=== PATIENT | male | born 1965 | race Caucasian/White ===

== ENCOUNTER 2017-03-10 12:11 | Outpatient (CLI) | payer BC ==
[~2017-03-10] VITALS: Ht 175.3 cm; Wt 107.3 kg
--- NOTE | ~2017-03-10 | OP ---
PATIENT NAME: HOWARD MAGALLANES MEDICAL RECORD: [id number] :69 LOCATION:D.OPS ADMISSION DATE: SURGEON: SOL MUELLER MD DATE OF OPERATION: 03/10/2017 PRIMARY CARE PHYSICIAN: Gurjit Cohen DO SURGEON: Sol Mueller MD ANESTHESIA: General anesthesia by Jose Tilley CRNA. PREOPERATIVE DIAGNOSIS: Right mid ureteral 6-mm stone with proximal hydronephrosis. POSTOPERATIVE DIAGNOSIS: Right mid ureteral 6-mm stone with proximal hydronephrosis. PROCEDURES: Cystoscopy. Bilateral retrograde pyelogram. Right ureteroscopy and stone extraction. Right ureteral stent insertion, 6-Monegasque x 24 cm with string attached. COMPLICATIONS: None. BLOOD LOSS: None. CLINICAL HISTORY: This is a 51-year-old male with no prior history of kidney stones. He has been complaining of right flank pain radiating down to the right testicle with episodes of nausea since before 2016. Finally, he saw his family physician today, and he had a CT scan of the abdomen and pelvis. This shows a 6-mm stone in the mid ureter on the right side. There is also a 6-mm stone in the left kidney, which is nonobstructive. Because he was continuing to have pain, he was scheduled to have right ureteroscopy and stone extraction. He did eat a Chicken McNugget at 11:30 a.m. today. We therefore had to wait at least 8 hours before we could perform surgery on him. He is not allergic to any medications. We gave him Ancef 1 gram IV network pricing consultant to the OR. DESCRIPTION OF PROCEDURE: The patient was given induction of general anesthesia. He was then placed in the dorsal lithotomy position and prepped and draped. The patient's urethral meatus was rather narrow, so we used male sounds to dilate the urethra to 26-Monegasque. We were then able to insert a 21-Monegasque cystoscope with 30-degree lens. Penile urethra was nonobstructive. Prostatic urethra showed some bilateral lateral lobe enlargement and some tightening of the bladder neck. Going into the bladder, there were single ureteral orifices seen clearly. No bladder trabeculation was noted. No bladder tumors were seen. On fluoroscopy, we could see the right mid ureteral stone very clearly as radiodensity. On the left, it was not so clear where the kidney stone was. Retrograde pyelograms were performed bilaterally. Looking at the retrograde pyelogram on the left, there is no hydronephrosis. The stone seems to be in the mid pole of the kidney. On the right, there was proximal hydronephrosis and the filling defect did demonstrate that the suspected stone was indeed the stone. Through the lumen of the open-ended ureteral catheter, we inserted a Sensor wire up into the right renal pelvis. The open-ended ureteral catheter was then removed entirely. We dilated the right ureteral orifice with an UroMax balloon dilator. The size of the balloon is 21-Monegasque x 4 cm. The balloon was inflated to 16 atmospheres for a few seconds and then deflated completely. The balloon OPERATIVE REPORT [id number] HOWARD MAGALLANES catheter was then completely removed as was the cystoscope. We then used a rigid ureteroscope. We were able to identify the stone in the mid ureter. A 4 wire basket was placed around the stone and the stone was completely removed. We then backloaded the guidewire onto the cystoscope. Over the guidewire, we inserted the stent. Once the stent was in correct position, the wire was withdrawn entirely. This allowed the proximal end of the stent to coil in the renal pelvis. The distal end of the stent was pushed into the bladder using a pusher. The wire was completely removed. The bladder was emptied through the cystoscope sheath and then the scope was removed. There is a string on the distal end of the stent, which is maintained. It hangs out of the penile urethra. It was tied to itself and cut shorter. The patient was awakened and brought to the recovery room. He will be going home tonight. I gave him a script for [place] 5/325, 30 tablets, in the office as well as tamsulosin. I will see him in the office next week to have the ureteral stent removed. TRANSINT:[id number] Voice Confirmation ID: [id number] DOCUMENT ID: [id number] SOL MUELLER MD at 0929 CC: [id number] DICTATION DATE: 03/10/172304 NETWORK DESKTOP SUPPORT SPECIALIST: 03/11/17 0203 DEP CLI 03/11/17 [facility] [address] [place] [address]
[2017-03-10] MEDS ORDERED: OMEPRAZOLE20 M1 PO (15:24)
[2017-03-10] MEDS ORDERED: ZESTORETIC 10/11 TAB PO (15:25)
[2017-03-10] MEDS ORDERED: FISH OIL 1,2001 CAP PO (15:25)
[2017-03-10] MEDS ORDERED: MULTIPLE VITAMI1 TA1 PO (15:25)
[2017-03-10 15:30] VITALS: BP 143/87; Ht 175.3 cm; Wt 107.3 kg
[2017-03-10 16:28] LABS: HEMATOCRIT 48.9 % (42.0-54.0); HEMOGLOBIN 16.5 g/dL (13.5-17.5); MCH 30.2 pg (26.0-34.0); MCHC 33.7 g/dL (31.0-37.0); MCV 89.4 fL (80.0-100.0); RBC 5.47 10x6/uL (4.20-6.10); RDW 12.5 % (11.5-14.5); WBC 10.6 10x3/uL (4.8-10.8)
[2017-03-10 23:25] VITALS: BP 146/83
[2017-03-21 11:12] LABS: CALCULI - CA OXALATE MONOHYDR 75 % (()); CALCULI - CALCIUM PHOSPHATE 25 % (()); CALCULI - COLOR Brown (()); CALCULI - WEIGHT 81.2 mg (())
== END 2017-03-11 01:02 | disposition home or self-care (01) ==
LOC: D.OPS 12:11 → D.CT 12:11 → EDBD 13:30 → D.CT 13:30 → D.MS 20:00 → D.OPS 03-11 01:02
PROVIDERS: Anesthesiology; Family Medicine
DX: N13.2 Hydronephrosis with renal and ureteral calculous obstruction (principal); Z01.812 Encounter for preprocedural laboratory examination

== ENCOUNTER 2017-04-21 10:38 | Day surgery (SDC) | payer BC | END 2017-04-21 14:35 | disposition home or self-care (01) | LOC: D.OPS 10:38 | DX: N20.0 Calculus of kidney (principal); Z01.810 Encounter for preprocedural cardiovascular examination; Z01.811 Encounter for preprocedural respiratory examination; Z01.812 Encounter for preprocedural laboratory examination; Z53.9 Procedure and treatment not carried out, unspecified reason ==

== ENCOUNTER 2017-05-12 10:48 | Day surgery (SDC) | payer BC ==
[~2017-05-12] VITALS: Ht 175.3 cm; Wt 104.5 kg
[~2017-05-12 10:48] MED LIST: FISH OIL 1,2001 CAP PO; MULTIPLE VITAMI1 TA1 PO; OMEPRAZOLE20 M1 PO; ZESTORETIC 10/11 TAB PO
[2017-05-12 11:54] VITALS: BP 111/75; Ht 175.3 cm; Wt 104.5 kg
== END 2017-05-12 13:50 | disposition home or self-care (01) ==
LOC: D.OPS 10:48
DX: N20.0 Calculus of kidney (principal); Z01.810 Encounter for preprocedural cardiovascular examination; Z01.811 Encounter for preprocedural respiratory examination; Z01.812 Encounter for preprocedural laboratory examination; Z53.9 Procedure and treatment not carried out, unspecified reason

== ENCOUNTER → 2017-05-25 07:30 | Outpatient (CLI) | payer BC ==
[2017-05-12 11:54] VITALS: BMI 34.0
== END | disposition home or self-care (01) ==
LOC: D.CT 07:30
DX: N20.0 Calculus of kidney (principal)

== ENCOUNTER → 2018-01-30 09:20 | Outpatient (CLI) | payer BC ==
[2017-05-12 11:54] VITALS: BMI 34.0
== END | disposition home or self-care (01) ==
LOC: D.HCCARDIO 09:20
DX: Z03.89 Encounter for observation for other suspected diseases and conditions ruled out (principal)

== ENCOUNTER 2018-02-16 06:52 | Outpatient (CLI) | payer BC ==
[~2018-02-16] VITALS: Ht 175.3 cm; Wt 102.3 kg
--- NOTE | ~2018-02-16 | HEMODYNAMI ---
PATIENT:HOWARD MAGALLANES MEDICAL RECORD: [id number] : 69 LOCATION:[facility] ADMISSION DATE: 02/16/18 Generatedon:02/16/20189:25 Patient name: HOWARD MAGALLANES Patient #: [id number] SSN: : 1965 Date of study: 02/16/2018 Page: Of Hemodynamic Procedure Report Patient Data Patient Demographics Procedure consent was obtained First Name: HOWARD Gender: Male Last Name: SONA : 1965 [facility] Initial: ANGIE Age: 52 year(s) Patient #: [id number] Race: Unknown Additional ID: [id number] Contact details Address: [address] [place] [address] [address] Data State: [place] City: [place] Zip code: [address] Past Medical History Allergies: No known allergies Admission Admission Data Admission Date: 02/16/2018 Admission Time: 6:52 Lab Results Lab Result Date: 02/16/2018 Lab Result Time: 7:40 Biochemistry Name Units Result Min Max BUN mg/dl 20 --(----)*- 7 18 Creatinine mg/dl 0.9 --(-*--)-- 0.6 1.3 CBC Name Units Result Min Max Hematocrit % 48.5 --(--*-)-- 42 54 Hemoglobin g/dl 16.4 --(--*-)-- 13.5 17.5 Procedure Procedure Types Cath Procedure Diagnostic Procedure C [facility] w/Coronaries Sedation Charges Moderate Sedation up to 30 minutes PCI Procedure Coronary Stent Coronary Stent Initial Procedure Description Procedure Date Procedure Date: 02/16/2018 Procedure Start Time: 8:49 Procedure End Time: 9:24 Procedure Staff Name Function Brien Ruano MD Performing Physician Andrae Davalos RT Monitor Kathryn Martinez RN Nurse Alis Madden RT Scrub Enrique Carrington RT Lamp Shade Assembler Procedure Data Cath Procedure Fluoroscopy Diagnostic fluoroscopy Total fluoroscopy Time: 6.9 time: 6.9 min min Diagnostic fluoroscopy Total fluoroscopy dose: dose: 1249 mGy 1249 mGy Contrast Material Contrast Material Type Amount (ml) Isovue 300 125 Entry Location Entry Primary Successful Side Size Upsize Upsize Entry Closure Berrios ccessful Closure Location (Fr) 1 (Fr) 2 (Fr) Remarks Device Remarks Radial Right 6 Fr Mechanical artery Short Compression Estimated blood loss: 10 ml Diagnostic catheters Device Type Used For End Catheter Placement DIAGNOSTIC Denis 110cm Procedure 5Fr catheter ([id number]) DIAGNOSTIC [place] 110cm 5 Procedure Fr catheter (072628) Procedure Complications No complications Procedure Medications Medication Administration Route Dosage 0.9% NaCl I.V. 100 ml/hr Oxygen etCO2 Nasal cannula 2 l/min Lidocaine 2% added to field 20 Heparin Flush Bag added to field 2 bags (1000units/500ml NS) Radial Cocktail added to field 1 syringe (Verapomil 2mg/Nitro 400mcg/Heparin 1500units) Versed I.V. 2 mg Fentanyl I.V. 50 mcg Versed I.V. 2 mg Fentanyl I.V. 50 mcg Heparin Bolus I.V. 74192 units Brilinta P.O. 180 mg Hemodynamics Rest HGB: 16.4 (g/dl) Heart Rate: 84 (bpm) Pressure Samples Time Site Value (mmHg) Purpose Heart Use Rate(bpm) 8:55 LV 114/1,12 Snapshot 88 8:56 AO 114/71(85) Pullback 96 8:56 LV 127/44,10 Pullback 96 Gradients Valve Time Site 1 Site 2 Mean SEP/DFP Peak To Heart Use (mmHg) (sec/min) Peak Rate (mmHg) (bpm) Aortic 8:56 LV AO 10 5 13 96 127/44,10 114/71(85) Calculations Valve P-P Mean Valve Index Valve Source Name Gradient Area Flow (cm2) Aortic 13 10 13 10 Snapshots Pre Cath Intra NCS Post Cath Vital Signs Time Heart Resp SPO2 etCO2 NIBP Rhythm Pain Sedation Rate (ipm) (%) (mmHg) (mmHg) Status Level (bpm) 8:32:54 72 16 97 34.2 113/73(88) NSR 0 (11) 10(A) , No pain 8:37:14 73 12 98 36.5 108/69(91) NSR 0 (11) 10(A) , No pain 8:41:32 78 15 100 36.5 106/72(90) NSR 0 (11) 10(A) , No pain 8:45:46 78 11 96 36.5 104/68(85) NSR 0 (11) 10(A) , No pain 8:50:02 76 12 97 39.5 113/68(83) NSR 0 (11) 10(A) , No pain 8:54:16 79 14 97 26.8 107/66(83) NSR 0 (11) 10(A) , No pain 8:58:34 86 13 96 36.5 105/61(85) NSR 0 (11) 9(A) , No pain 9:02:52 81 14 95 40.2 102/62(82) NSR 0 (11) 9(A) , No pain 9:07:10 79 10 97 38.7 105/61(89) NSR 0 (11) 9(A) , No pain 9:11:28 82 13 96 38.7 99/64(79) NSR 0 (11) 9(A) , No pain 9:15:44 75 10 97 38.7 104/62(80) NSR 0 (11) 9(A) , No pain 9:19:58 79 12 98 40.6 105/63(81) NSR 0 (11) 10(A) , No pain 9:24:12 70 12 99 107/74(85) NSR 0 (11) 9(A) , No pain Medications Time Medication Route Dose Verified Delivered Reason Note s Effectiveness by by 8:31:45 0.9% NaCl I.V. 100 Brien Kathryn used for ml/hr Alden Martinez gas station service attendant 8:31:52 Oxygen etCO2 2 l/min Brien Kathryn used for Nasal Alden Martinez procedure cannula RN 8:31:57 Lidocaine 2% added 20ml Brien Brien for local to vial Alden Ruano MD anesthetic field 8:32:02 Heparin Flush added 2 bags Brien Brien used for Bag to Alden Ruano MD procedure (1000units/500ml field NS) 8:32:10 Radial Cocktail added 1 Brien Brien used for (Verapomil to syringe Alden Ruano MD procedure 2mg/Nitro field 400mcg/Heparin 1500units) 8:45:11 Versed I.V. 2 mg Brien Kathryn for sedation Alden Martinez RN 8:45:16 Fentanyl I.V. 50 mcg Brien Kathryn for sedation Alden Martinez RN 8:56:04 Versed I.V. 2 mg Brien Kathryn for sedation Alden Martinez RN 8:56:10 Fentanyl I.V. 50 mcg Brien Kathryn for sedation Alden Martinez RN 9:05:38 Heparin Bolus I.V. 08496 Brien Kathryn for veri fied units Alden Martinez anticoagulation with DrGwendolyn Ruano 9:20:42 Brilinta P.O. 180 mg Brien Kathryn for Alden Martinez antiplatelet RN therapy Procedure Log Time Note 8:02:47 Time tracking: Regular hours (M-F 7:00 - 5:00) 8:02:51 Plan of Care:Hemodynamics will remain stable., Cardiac rhythm will remain stable., Comfort level will be maintained., Respiratory function will remain adequate., Patient/ family verbilizes understanding of procedure., Procedure tolerated without complication., Recovers from procedure without complications.. 8:10:00 Enrique Carrington RT(R) sent for patient. Start room use. 8:25:02 Patient received from Pre/Post Procedure Room to CCL 1 Alert and oriented. Tansferred to table in Supine position. 8:25:03 Warm blankets applied, and vivek hugger turned on for patient comfort. 8:25:04 Correct patient and procedure confirmed by team. 8:25:05 Signed procedure consent form obtained from patient. 8:25:06 ECG and BP/O2 sat monitors applied to patient. 8:25:14 H&P Date Dictated: 02/16/2018 New H&P dictated by physician.. 8:25:17 Pre-procedure instructions explained to patient. 8:25:17 Pre-op teaching completed and patient verbalized understanding. 8:25:19 Family in waiting room. 8:25:20 Patient NPO since Midnight. 8:25:26 Patient allergic to No known allergies 8:25:58 Lab Result : BUN 20 mg/dl 8:25:58 Lab Result : Creatinine 0.9 mg/dl 8:25:58 Lab Result : Hemoglobin 16.4 g/dl 8:25:58 Lab Result : Hematocrit 48.5 % 8:31:36 Vital chart was started 8:31:45 0.9% NaCl 100 ml/hr I.V. was administered by Kathryn Martinez RN; used for procedure; 8:31:49 Full Disclosure recording started 8:31:52 Oxygen 2 l/min etCO2 Nasal cannula was administered by Kathryn Martinez RN; used for procedure; 8:31:57 Lidocaine 2% 20ml vial added to field was administered by Brien Ruano MD; for local anesthetic; 8:32:02 Heparin Flush Bag (1000units/500ml NS) 2 bags added to field was administered by Brien Ruano MD; used for procedure; 8:32:10 Radial Cocktail (Verapomil 2mg/Nitro 400mcg/Heparin 1500units) 1 syringe added to field was administered by Brien Ruano MD; used for procedure; 8:43:43 Baseline sample Acquired. 8:43:48 Rhythm: sinus rhythm 8:43:52 Is the patient allergic to Iodine/contrast media? No. 8:43:56 Is patient on blood thinner?No 8:43:57 Patient diabetic? No. 8:43:59 Previous problem with sedation/anesthesia? No ? 8:44:00 Snore? Yes 8:44:01 Sleep apnea? No 8:44:02 Deviated septum? No 8:44:02 Opens mouth fully? Yes 8:44:03 Sticks out tongue? Yes 8:44:04 Airway obstruction? No ? 8:44:06 Dentures? No ? 8:44:08 Pre procedure: right dorsailis pedis pulse 2+ Normal; easily identifiable; not easily obliterated 8:44:15 Modified Tyler's test Ulnar < 7 seconds 8:44:17 Patient pain scale 0/10 ?. 8:44:22 IV patent on arrival in left wrist with 0.9% NaCl at KVO. 8:44:24 Lab results completed and on chart. 8:44:26 Right Radial & Right Groin area was prepped with chlora-prep and draped in sterile fashion 8:44:27 Alarms reviewed by R. N. 8:44:28 Sharps counted by scrub and verified by R.N. 8:44:30 Use device set Radial Dx or PCI 8:44:31 ACIST Syringe (48049) opened to sterile field. 8:44:31 Medline Cath Pack ([id number]) opened to sterile field. 8:44:32 Bag Decanter (2001S) opened to sterile field. 8:44:33 ACIST Hand Control (98977) opened to sterile field. 8:44:33 ACIST Manifold (85916) opened to sterile field. 8:44:33 Tegaderm 4 x 4 (1626W) opened to sterile field. 8:44:34 MBrace Wrist Support (496800550) opened to sterile field. 8:44:35 SHEATH 6FR Slender (44-1060) opened to sterile field. 8:44:36 NEEDLE Cook 21G 4cm Radial (G45683) opened to sterile field. 8:44:37 DIAGNOSTIC WIRE .035 260cm J wire (079077) opened to sterile field. 8:44:43 Physician arrived 8:44:43 --------ALL STOP TIME OUT------ 8:44:44 Final Timeout: patient, procedure, and site verified with staff and physician. All members of the team are in agreement. 8:44:45 Right Radial & Right Groin site verified by team. 8:44:47 Physical assessment completed. ASA score P 2 - A patient with mild systemic disease as per Brien Ruano MD. 8:44:50 Sedation plan: IV Moderate Sedation Medication:Versed, Fentanyl 8:45:11 Versed 2 mg I.V. was administered by Kathryn Martinez RN; for sedation; 8:45:16 Fentanyl 50 mcg I.V. was administered by Kathryn Martinez RN; for sedation; 8:47:18 Zero performed for pressure channel P1 8:49:29 Zero performed for pressure channel P1 8:49:35 Procedure started. 8:49:38 Local anesthetic to right radial artery with Lidocaine 2% by Brien Ruano MD.INITIAL ACCESS ONLY 8:54:05 A 6 Fr Short sheath was inserted into the Right Radial artery 8:54:17 A DIAGNOSTIC Denis 110cm 5Fr catheter (507130) was advanced over the wire and used for Procedure. 8:56:03 LV gram done using MONTERROSO 8:56:03 LV hemodynamics recorded. 8:56:04 Versed 2 mg I.V. was administered by Kathryn Martinez RN; for sedation; 8:56:06 Injector settings: Ml/sec: 5, Volume: 15, 8:56:10 Fentanyl 50 mcg I.V. was administered by Kathryn Martinez RN; for sedation; 8:56:14 EF : 60 % 8:56:52 RCA angiography performed. 8:59:06 Catheter exchanged over wire. 8:59:10 A DIAGNOSTIC [place] 110cm 5 Fr catheter (479709) was advanced over the wire and used for Procedure. 9:00:32 LCA angiography performed. 9:02:06 Catheter exchanged over wire. 9:02:12 GUIDE 6FR XBLAD 3.5 catheter (51658615) opened to sterile field. 9:02:22 TUBING High Pressure Extension Tubing (Alden) ([id number]) opened to sterile field. 9:02:24 INFLATOR Merit BasixCompak (QA9669) opened to sterile field. 9:02:24 BMW 300cm [place] 2 J wire ([id number]) opened to sterile field. 9:04:37 6 Fr XBLAD 3.5 guide catheter was inserted over the wire 9:05:38 Heparin Bolus 95794 units I.V. was administered by Kathryn Martinez RN; for anticoagulation; verified with Dr. Ruano 9:06:49 BMW wire advanced. 9:09:36 Wire advanced across lesion. 9:11:03 Place stent Inflation Number: 1 A MARCELLE OTW 2.75 x 15 stent ([id number]) was prepped and advanced across the Prox LAD. The stent was deployed at 12 ASHLIE for 0:10 (min:sec). 9:11:14 Stent catheter was removed intact over wire. 9:18:19 Place stent Inflation Number: 2 A MARCELLE OTW 2.75 x 18 stent ([id number]) was prepped and advanced across the Prox LAD. The stent was deployed at 12 ASHLIE for 0:10 (min:sec). 9:18:50 Stent catheter was removed intact over wire. 9:18:51 Wire removed. 9:18:51 Guide catheter removed. 9:19:23 TR BAND Standard ([id number]) opened to sterile field. 9:19:30 Sheath removed intact; hemostasis achieved with Mechanical Compression to the Right Radial artery. 9:19:31 Procedure ended.(Physican Out) 9:19:51 Fluoroscopy time 06.90 minutes. 9:19:57 Flurop Dose total: 1249 9:19:57 Fluoroscopy dose: 1249 mGy 9:20:00 Contrast amount:Isovue 300 125ml. 9:20:02 Sharps counted by scrub and verified by R.N. 9:20:09 TR band inflated with 12cc of air. 9:20:10 Insertion/operative site no bleeding no hematoma. 9:20:42 Brilinta 180 mg P.O. was administered by Kathryn Martinez RN; for antiplatelet therapy; 9:22:18 Post right radial artery:stable, soft, clean and dry 9:22:19 Post Procedure Pulses reassessed and unchanged 9:22:21 Post-procedure physical assessment completed. ASA score P 2 - A patient with mild systemic disease as per Brien Ruano MD. 9:22:23 Post procedure rhythm: unchanged. 9:22:25 Estimated blood loss: 10 ml 9:23:00 Post procedure instruction explained to patient.Patient verbalizes understanding. 9:23:01 Patient needs reinforcement of post procedure teaching. 9:23:01 Procedure and supply charges have been captured, reviewed, submitted and are correct. 9:23:40 Procedure type changed to Cath procedure, Diagnostic procedure, LHC, LHC w/Coronaries, Sedation Charges, Moderate Sedation up to 30 minutes, PCI procedure, Coronary Stent, Coronary Stent Initial 9:24:39 Procedure Complication : No complications 9:24:41 Vital chart was stopped 9:24:42 See physician's report for complete and final results. 9:24:44 Report given to Pre/Post Procedure Room. 9:24:48 Patient transfered to Pre/Post Procedure Room with Stretcher. 9:24:50 Procedure ended. 9:24:50 Full Disclosure recording stopped 9:24:53 End room use (Document Last) Intervention Summary Intervention Notes Time ActionType Lesion and Equipment Action# Pressure Duration Attributes Used 9:11:03 Place stent Prox LAD MARCELLE OTW 2.75 1 12 00:10 x 15 stent ([id number]) 9:18:19 Place stent Prox LAD MARCELLE OTW 2.75 2 12 00:10 x 18 stent ([id number]) Device Usage Item Name Manufacture Quantity Catalog Hospital Part Current Mini mal Lot# / Number Charge Number Stock Stock Serial# Code ACIST Syringe Acist 1 42277 653907 018472 806125 20 (86787) Alt12 Apps Medline Cath Medline 1 [id number] 629811 38276 015820 5 Pack ([id number]) Bag Decanter Microtek 1 670724 85103 980135 5 (2001S) Medical Inc. ACIST Hand Acist 1 62843 108370 642274 187920 5 Control Medical (19975) Systems Inc ACIST Acist 1 51657 630415 340681 787415 5 Manifold Medical (39547) Systems Inc Tegaderm 4 x 3M 1 1626W 459980 026532 645564 5 4 (1626W) MBrace Wrist Advanced 1 140-0250-00 175125 81948 298234 5 Support Vascular (713177676) Dynamics SHEATH 6FR Terumo 1 [id number] 197167 819767 074403 5 Slender (80-1060) NEEDLE SilverPush Medical 1 L75261 127905 187154 297526 5 21G 4cm Radial (G01031) DIAGNOSTIC St Mak 1 176400 462728 367021 319153 30 WIRE .035 260cm J wire (946134) DIAGNOSTIC Terumo 1 40-5023 070594 216987 112608 5 Denis 110cm 5Fr catheter (698825) DIAGNOSTIC Terumo 1 40-5013 985432 037418 597515 5 [place] 110cm 5 Fr catheter (525440) GUIDE 6FR Cardinal 1 [id number] 100945 832824 114052 10 XBLAD 3.5 Health catheter (15195573) TUBING High Merit 1 [id number] 628961 43124 530407 10 Pressure Medical Extension Tubing (Ruano) (FQ3784B) INFLATOR Merit 1 OS2129 138453 123611 700822 15 [facility] Medical BasixCompak (XU9196) BMW 300cm Rodriguez 1 [id number] 260404 306912 204158 5 [place] 2 J Vascular wire (9689330H) MARCELLE OTW 2.75 Medtronic 1 [id number] 625758 9522005 638509 5 [id number] x 15 stent ([id number]) MARCELLE OTW 2.75 Medtronic 1 [id number] 811932 4355791 950825 5 [id number] x 18 stent ([id number]) TR BAND Terumo 1 [id number] 642721 771725 629064 40 Standard ([id number]) Signature Audit [place] Stage Time Signature Unsigned Intra-Procedure 02/16/2018 Andrae Davalos 9:25:53 AM RT(R) Signatures Monitor : Andrae Davalos RT Signature : Date : Time : [address] [place] [address]
[2018-02-16 07:29] VITALS: BP 119/78; Ht 175.3 cm; Wt 102.3 kg
[2018-02-16 07:45] LABS: BASOPHILS 0.2 % (0-2); EOSINOPHILS 1.8 % (0-7); HEMATOCRIT 48.5 % (42.0-54.0); HEMOGLOBIN 16.4 g/dL (13.5-17.5); IMMATURE GRANULOCYTES 0.2 % (0-5); MCH 30.2 pg (26.0-34.0); MCHC 33.8 g/dL (31.0-37.0); MCV 89.3 fL (80.0-100.0); MEAN PLATELET VOLUME 11.3 fL (7.4-10.4); MONOCYTES 10.1 % (2-11); NEUTROPHILS 62.7 % (40-80); PLATELET COUNT 168 10x3/uL (130-400); RBC 5.43 10x6/uL (4.20-6.10); RDW 12.6 % (11.5-14.5); WBC 5.6 10x3/uL (4.8-10.8)
[2018-02-16 08:03] LABS: CALC OSMOLALITY 286 mosm/kg (275-300); CALCIUM 9.5 mg/dL (8.5-10.1); CARBON DIOXIDE 28.8 mmol/L (21.0-32.0); CHLORIDE - SERUM 104 mmol/L (98-107); CREATININE - SERUM 0.9 mg/dL (0.6-1.3); GLUCOSE 120 mg/dL (74-106); SODIUM 142 mmol/L (136-145); UREA NITROGEN 20 mg/dL (7-18); eGFR NON AFRICAN AMERICAN > 90 mL/min (90-120)
[2018-02-16] MEDS ORDERED: BRILINTA90 MG PO (09:30)
[2018-02-16] MEDS ORDERED: BAYER CHEWABLE81 MG PO (09:30)
== END 2018-02-16 13:40 | disposition home or self-care (01) ==
LOC: D.CATH 06:52
PROVIDERS: Internal Medicine Cardiovascular Disease
DX: I25.119 Atherosclerotic heart disease of native coronary artery with unspecified angina pectoris (principal); I10 Essential (primary) hypertension; K21.9 Gastro-esophageal reflux disease without esophagitis; Z01.812 Encounter for preprocedural laboratory examination

== ENCOUNTER → 2019-10-22 09:59 | Outpatient (CLI) | payer BC ==
[2018-02-16 07:29] VITALS: BMI 33.3
[~2019-10-22 09:59] MED LIST changes: +BAYER CHEWABLE81 MG PO; +BRILINTA90 MG PO
== END | disposition home or self-care (01) ==
LOC: D.HCCARDIO 09:59
PROVIDERS: ATTEND Internal Medicine Cardiovascular Disease
DX: I25.10 Atherosclerotic heart disease of native coronary artery without angina pectoris (principal)

== ENCOUNTER 2019-11-05 11:21 | Day surgery (SDC) | payer BC ==
[~2019-11-05] VITALS: Ht 175.3 cm; Wt 103.2 kg
--- NOTE | ~2019-11-05 | HEMODYNAMI ---
PATIENT:HOWARD MAGALLANES MEDICAL RECORD: [id number] : 69 LOCATION:D.CAT ADMISSION DATE: 11/05/19 Generatedon:11/05/201915:05 Patient name: HOWARD MAGALLANES Patient #: [id number] SSN: [id number] : 1965 Date of study: 11/05/2019 Page: Of Hemodynamic Procedure Report Patient Data Patient Demographics Procedure consent was obtained First Name: HOWARD Gender: Male Last Name: SONA : 1965 [facility] Initial: ANGIE Age: 53 year(s) Patient #: [id number] Race: SSN: [id number] Additional ID: [id number] Contact details Address: [address] [place] [address] [facility] State: [place] City: [place] Zip code: [address] Past Medical History Allergies: No known allergies Admission Admission Data Admission Date: 11/05/2019 Admission Time: 11:21 Arrival Date: 11/05/2019 Arrival Time: 0:00 Admit Source: Other Insurance Payor: Private health insurance [facility] #: [id number] Height (in.): 69 BSA: 2.18 (m2) Height (cm.): 175.26 BMI: 33.59 (kg/m2) Weight (lbs.): 227.47 Weight (kg.): 103.18 Lab Results Lab Result Date: 11/05/2019 Lab Result Time: 0:00 Biochemistry Name Units Result Min Max BUN mg/dl 20 --(----)*- 7 18 Creatinine mg/dl 0.8 --(-*--)-- 0.6 1.3 eGFR ml/min 90 --(*---)-- 90 120 NONAFRICAN CBC Name Units Result Min Max Hematocrit % 49 --(--*-)-- 42 54 Hemoglobin g/dl 16.2 --(--*-)-- 13.5 17.5 Procedure Procedure Types Cath Procedure Diagnostic Procedure LHC LHC w/Coronaries Sedation Charges Moderate Sedation up to 15 minutes Procedure Description Procedure Date Procedure Date: 11/05/2019 Procedure Start Time: 14:49 Procedure End Time: 15:02 Procedure Staff Name Function Brien Ruano MD Performing Physician Aleta Walker RT Scrub Gardenia Lora, RN Nurse Joyce Perez RN Nurse Andrae Davalos RT Monitor Procedure Data Cath Procedure Fluoroscopy Diagnostic fluoroscopy Total fluoroscopy Time: 3 time: 3 min min Diagnostic fluoroscopy Total fluoroscopy dose: 606 dose: 606 mGy mGy Contrast Material Contrast Material Type Amount (ml) Isovue 300 63 Entry Location Entry Primary Successful Side Size Upsize Upsize Entry Closure Berrios ccessful Closure Location (Fr) 1 (Fr) 2 (Fr) Remarks Device Remarks Radial Right 6 Fr Mechanical artery Short Compression Estimated blood loss: 5 ml Diagnostic catheters Device Type Used For End Catheter Placement DIAGNOSTIC Denis 110cm Procedure 5Fr catheter ([id number]) DIAGNOSTIC Lawton 110cm 5 Procedure Fr catheter ([id number]) Procedure Complications No complications Procedure Medications Medication Administration Route Dosage Oxygen etCO2 Nasal cannula 2 l/min Heparin Flush Bag added to field 2 bags (1000units/500ml NS) Lidocaine 2% added to field 20 0.9% NaCl I.V. 100 ml/hr Radial Cocktail added to field 1 syringe (Verapamil 2mg/Nitro 400mcg/Heparin 1500units) Fentanyl I.V. 50 mcg Versed I.V. 1 mg Fentanyl I.V. 50 mcg Versed I.V. 1 mg Radial Cocktail I.A. 1 syringe (Verapamil 2mg/Nitro 400mcg/Heparin 1500units) Versed I.V. 0.5 mg Hemodynamics Rest BSA: 2.18 (m2) HGB: 16.2 (g/dl) O2 Consumption: Estimated: 258.1 (ml/min) O2 Con sumption indexed: Estimated:118.39 (ml/min/m) Heart Rate: 67 (bpm) Pressure Samples Time Site Value (mmHg) Purpose Heart Use Rate(bpm) 14:52 LV 102/-2,9 Snapshot 80 14:52 AO 79/57(65) Pullback 87 14:52 LV 105/-1,6 Pullback 87 Gradients Valve Time Site 1 Site 2 Mean SEP/DFP Peak To Heart Use (mmHg) (sec/min) Peak Rate (mmHg) (bpm) Aortic 14:52 LV AO 11 21 26 87 105/-1,6 79/57(65) Calculations Valve P-P Mean Valve Index Valve Source Name Gradient Area Flow (cm2) Aortic 26 11 26 11 Snapshots Pre Cath Intra NCS Post Cath Vital Signs Time Heart Resp SPO2 etCO2 NIBP Rhythm Pain Sedation Rate (ipm) (%) (mmHg) (mmHg) Status Level (bpm) 14:09:34 71 17 97 0 110/75(87) NSR 0 (11) 10(A) , No pain 14:13:50 70 16 97 0 117/71(88) NSR 0 (11) 10(A) , No pain 14:18:11 72 12 94 0 109/65(84) NSR 0 (11) 10(A) , No pain 14:22:29 74 12 93 0 104/67(83) NSR 0 (11) 10(A) , No pain 14:26:47 82 11 89 0 118/64(91) NSR 0 (11) 10(A) , No pain 14:31:07 78 13 90 0 104/63(81) NSR 0 (11) 10(A) , No pain 14:35:23 72 15 92 0 115/66(81) NSR 0 (11) 10(A) , No pain 14:39:41 71 10 93 0 105/63(81) NSR 0 (11) 10(A) , No pain 14:43:57 72 10 93 0 104/66(83) NSR 0 (11) 10(A) , No pain 14:48:15 72 12 93 0 105/61(82) NSR 0 (11) 9(A) , No pain 14:52:29 102 11 92 0 105/53(86) NSR 0 (11) 9(A) , No pain 14:56:47 76 11 92 0 107/64(77) NSR 0 (11) 9(A) , No pain 15:01:03 71 10 93 0 105/66(82) NSR 0 (11) 9(A) , No pain Medications Time Medication Route Dose Verified Delivered Reason Notes Effectiveness by by 14:11:35 Oxygen etCO2 2 l/min Gardenia Gardenia for low 02 Nasal Lora, Lora, sats cannula RN RN 14:12:13 Heparin Flush added 2 bags Gardenia Gardenia used for Bag to Lora, Lora, procedure (1000units/500ml field RN RN NS) 14:12:27 Lidocaine 2% added 20ml Gardenia Brien for local to vial Alden Lora MD anesthetic field RN 14:12:50 0.9% NaCl I.V. 100 Gardenia Brien Per ml/hr Alden Lora MD physician RN 14:13:03 Radial Cocktail added 1 Gardenia Gardenia for (Verapamil to syringe Guido Lora, vasodilation 2mg/Nitro field RN RN 400mcg/Heparin 1500units) 14:45:41 Fentanyl I.V. 50 mcg Gardenia Gardenia for sedation Guido Lora, RN RN 14:45:44 Versed I.V. 1 mg Gardenia Gardenia for sedation Guido Lora, RN RN 14:49:23 Fentanyl I.V. 50 mcg Gardenia Gardenia for sedation Guido Lora, RN RN 14:49:26 Versed I.V. 1 mg Gardenia Gardenia for sedation Guido Lora, RN RN 14:51:13 Radial Cocktail I.A. 1 Gardenia Brien for (Verapamil syringe Alden Lora MD vasodilation 2mg/Nitro RN 400mcg/Heparin 1500units) 14:53:22 Versed I.V. 0.5 mg Gardenia Gardenia for sedation Guido Lora, RN supervisor agricultural education Log Time Note 13:50:59 Informed consent obtained and on chart 13:51:19 Diagnostic Cath Status : Elective 13:51:36 Arrival Date: 11/05/2019 12:00:00 AM 13:51:37 Admit Source: Other 13:51:40 Insurance Payor : Private health insurance 13:52:03 Patient Height : 69 inches 13:52:07 Patient Weight : 227.47 lbs 13:52:35 Lab Result : Hemoglobin 16.2 g/dl 13:52:35 Lab Result : Hematocrit 49 % 13:52:35 Lab Result : eGFR NONAFRICAN 90 ml/min 13:52:35 Lab Result : BUN 20 mg/dl 13:52:35 Lab Result : Creatinine 0.8 mg/dl 14:01:01 Procedure Status Elective Heart Cath (OP). 14:01:03 Gardenia Lora RN sent for patient. Start room use. 14:01:04 Time tracking: Regular hours (M-F 7:00 - 5:00) 14:01:08 Plan of Care:Hemodynamics will remain stable., Cardiac rhythm will remain stable., Comfort level will be maintained., Respiratory function will remain adequate., Patient/ family verbilizes understanding of procedure., Procedure tolerated without complication., Recovers from procedure without complications.. 14:01:19 H&P Date Dictated: 10/03/2019 Within 30 days and on chart., H&P Addendum completed by physician on day of procedure. (MUST COMPLETE FOR ALL OUTPATIENTS). 14:02:55 Patient received from Pre/Post Procedure Room to CCL 1 Alert and oriented. Tansferred to table in Supine position. 14:02:56 Warm blankets applied, and vivek hugger turned on for patient comfort. 14:02:57 Correct patient and procedure confirmed by team. 14:02:57 ECG and BP/O2 sat monitors applied to patient. 14:08:24 Vital chart was started 14:08:25 Baseline sample Acquired. 14:08:29 Rhythm: sinus rhythm 14:10:44 Pre-procedure instructions explained to patient. 14:10:45 Pre-op teaching completed and patient verbalized understanding. 14:10:46 Family in waiting room. 14:10:48 Patient NPO since Breakfast. 14:10:59 Patient allergic to No known allergies 14:11:02 Is the patient allergic to Iodine/contrast media? No. 14:11:03 Is patient on blood thinner?No 14:11:06 Patient diabetic? No. 14:11:35 Oxygen 2 l/min etCO2 Nasal cannula was administered by Gardenia Lora RN; for low 02 sats; Verbal order read back and verified. 14:12:13 Heparin Flush Bag (1000units/500ml NS) 2 bags added to field was administered by Gardenia Lora RN; used for procedure; Verbal order read back and verified. 14:12:27 Lidocaine 2% 20ml vial added to field was administered by Brien Ruano MD; for local anesthetic; Verbal order read back and verified. 14:12:50 0.9% NaCl 100 ml/hr I.V. was administered by Brien Ruano MD; Per physician; Verbal order read back and verified. 14:13:03 Radial Cocktail (Verapamil 2mg/Nitro 400mcg/Heparin 1500units) 1 syringe added to field was administered by Gardenia Lora RN; for vasodilation; Verbal order read back and verified. 14:17:22 Zero performed for pressure channel P1 14:22:14 Zero performed for pressure channel P1 14:30:38 Previous problem with sedation/anesthesia? No ? 14:30:39 Snore? Yes 14:30:43 Sleep apnea? No 14:30:44 Deviated septum? No 14:30:45 Opens mouth fully? Yes 14:30:46 Sticks out tongue? Yes 14:30:47 Airway obstruction? No ? 14:30:49 Dentures? No ? 14:30:53 Pre procedure: right dorsailis pedis pulse 2+ Normal; easily identifiable; not easily obliterated 14:30:55 Modified Tyler's test Ulnar > 7 seconds. 14:30:57 Patient pain scale 0/10 ?. 14:31:07 IV patent on arrival in left forearm with 0.9% NaCl at [facility]. 14:31:08 Lab results completed and on chart. 14:31:28 Stress Test: yes; abnormal INFERIOR 14:32:26 Right Radial & Right Groin area was prepped with chlora-prep and draped in sterile fashion 14:32:28 Alarms reviewed by R. N. 14:32:28 Sharps counted by scrub and verified by R.N. 14:32:30 Use device set Radial Dx or PCI 14:32:32 ACIST Syringe (47963) opened to sterile field. 14:32:32 Medline Cath Pack ([id number]) opened to sterile field. 14:32:32 Bag Decanter (2002) opened to sterile field. 14:32:33 ACIST Hand Control (43357) opened to sterile field. 14:32:33 ACIST Manifold (95262) opened to sterile field. 14:32:34 Tegaderm 4 x 4 (1626W) opened to sterile field. 14:32:35 MBrace Wrist Support ([id number]) opened to sterile field. 14:32:36 NEEDLE Cook 21G 4cm Radial (T33568) opened to sterile field. 14:32:37 EMERALD Guide Wire (404-023) opened to sterile field. 14:32:38 SHEATH 6FR RAIN (6487618) opened to sterile field. 14:32:46 Physician arrived 14:45:02 --------ALL STOP TIME OUT------ 14:45:03 Final Timeout: patient, procedure, and site verified with staff and physician. All members of the team are in agreement. 14:45:04 Right Radial & Right Groin site verified by team. 14:45:08 Fire Safety Assessment: A--An alcohol-based skin anteseptic being used preoperatively., C--Open oxygen or nitrous oxide is being used., D--An ESU, laser, or fiber-optic light is being used. 14:45:10 Physical assessment completed. ASA score P 2 - A patient with mild systemic disease as per Brien Ruano MD. 14:45:12 1) 90+ Normal kidney functon but urine findings or structural abnormalities or genetic trait point to kidney disease. 14:45:16 Maximum allowable contrast dose (3.7 X eGFR X 0.75)250 ml. 14:45:20 Sedation plan: IV Moderate Sedation Medication:Versed, Fentanyl 14:45:41 Fentanyl 50 mcg I.V. was administered by Gardenia Lora RN; for sedation; Verbal order read back and verified. 14:45:44 Versed 1 mg I.V. was administered by Gardenia Lora RN; for sedation; Verbal order read back and verified. 14:49:16 Procedure started. 14:49:16 Full Disclosure recording started 14:49:20 Local anesthetic to right radial artery with Lidocaine 2% by Brien Ruano MD.INITIAL ACCESS ONLY 14:49:23 Fentanyl 50 mcg I.V. was administered by Gardenia Lora RN; for sedation; Verbal order read back and verified. 14:49:26 Versed 1 mg I.V. was administered by Gardenia Lora RN; for sedation; Verbal order read back and verified. 14:50:46 A 6 Fr Short sheath was inserted into the Right Radial artery 14:51:00 A DIAGNOSTIC Denis 110cm 5Fr catheter ([id number]) was advanced over the wire and used for Procedure. 14:51:13 Radial Cocktail (Verapamil 2mg/Nitro 400mcg/Heparin 1500units) 1 syringe I.A. was administered by Brien Ruano MD; for vasodilation; Verbal order read back and verified. 14:52:22 LV gram done using MONTERROSO 14:52:25 Injector settings: Ml/sec: 5, Volume: 15, 14:52:29 LV hemodynamics recorded. 14:52:39 EF : 60 % 14:52:54 LCA angiography performed. 14:53:22 Versed 0.5 mg I.V. was administered by Gardenia Lora RN; for sedation; Verbal order read back and verified. 14:53:55 Catheter exchanged over wire. 14:54:03 A DIAGNOSTIC Lawton 110cm 5 Fr catheter ([id number]) was advanced over the wire and used for Procedure. 14:55:45 LCA angiography performed. 14:56:53 RCA angiography performed. 14:57:23 Catheter removed. 14:57:26 TR BAND Standard ([id number]) opened to sterile field. 14:58:19 Sheath removed intact; hemostasis achieved with Mechanical Compression to the Right Radial artery. 14:58:21 Procedure ended.(Physican Out) 14:59:56 Fluoroscopy time 03.00 minutes. 15:00:01 Flurop Dose total: 606 15:00:01 Fluoroscopy dose: 606 mGy 15:00:11 Dose Area Product 64473 mGy/cm. 15:00:15 Contrast amount:Isovue 300 63ml. 15:00:17 Maximum allowable dose exceeded? No. 15:00:18 Sharps counted by scrub and verified by R.N. 15:00:20 Coleman band inflated with 12cc of air. 15:00:21 Insertion/operative site no bleeding no hematoma. 15:00:26 Post right radial artery:stable, soft, clean and dry 15:00:28 Post Procedure Pulses reassessed and unchanged 15:00:30 Post-procedure physical assessment completed. ASA score P 2 - A patient with mild systemic disease as per Brien Ruano MD. 15:00:38 Post procedure rhythm: unchanged. 15:00:41 Estimated blood loss: 5 ml 15:00:43 Post procedure instruction explained to patient.Patient verbalizes understanding. 15:00:44 Patient needs reinforcement of post procedure teaching. 15:01:32 Procedure type changed to Cath procedure, Diagnostic procedure, LHC, LHC w/Coronaries, Sedation Charges, Moderate Sedation up to 15 minutes 15:01:51 Procedure and supply charges have been captured, reviewed, submitted and are correct. 15:01:53 Procedure Complication : No complications 15:01:57 Vital chart was stopped 15:02:07 See physician's report for complete and final results. 15:02:07 Operative report dictated upon procedure completion. 15:02:09 Report given to Pre/Post Procedure Room. 15:02:13 Patient transfered to Pre/Post Procedure Room with Stretcher. 15:02:15 Procedure ended. 15:02:15 Full Disclosure recording stopped 15:02:18 End room use (Document Last) 15:03:28 Aleta Walker RT(R) was relieved by Joyce Perez RN as monitoring person 15:04:16 Joyce Perez RN was relieved by Andrae Davalos RT(R) as monitoring person Device Usage Item Name Manufacture Quantity Catalog Hospital Part Current Minima l Lot# / Number Charge Number Stock Stock Serial# Code ACIST Acist 1 47268 800869 628858 [id number] 20 Syringe Medical (31100) Systems Inc Medline Medline 1 [id number] 476819 02897 318538 5 Cath Pack ([id number]) Bag Microtek 1 482464 43185 800006 5 Decanter Medical Inc. () ACIST Hand Acist 1 58810 320939 299558 526454 5 Control Medical (15377) Systems Inc ACIST Acist 1 15615 893392 502561 917497 5 Manifold Medical (16933) Systems Inc Tegaderm 4 3M 1 1626W 311238 437793 577997 5 x 4 (1626W) MBrace Advanced 1 140-0250-00 276289 96778 914405 5 Wrist Vascular Support Dynamics ([id number]) NEEDLE Cook Cook Medical 1 A72930 458782 361835 630173 5 21G 4cm Radial (I22597) EMERALD Cardinal 1 502-455 220173 809321 812238 5 Guide Wire Health (616-455) SHEATH 6FR Cardinal 1 [id number] 867120 8022245 764942 5 [facility] Health (1038298) DIAGNOSTIC Terumo 1 40-5023 355289 330499 872436 5 Denis 110cm 5Fr catheter (157182) DIAGNOSTIC Terumo 1 40-5013 298289 505434 813641 5 Lawton 110cm 5 Fr catheter (153928) TR BAND Terumo 1 ICC93-JDC 907794 381317 857338 40 Standard ([id number]) Signature Audit Stanford Stage Time Signature Unsigned Intra-Procedure 11/05/2019 Andrae Davalos 3:02:54 PM RT(R) Intra-Procedure 11/05/2019 Joyce 3:04:09 PM Chris RN Intra-Procedure 11/05/2019 Brien Ruano MD 3:05:32 PM [place] [id number]
[~2019-11-05 11:21] MED LIST changes: -ZESTORETIC 10/11 TAB PO; +ZESTORETIC 20-1 EACH PO
[2019-11-05] MEDS ORDERED: PRAVASTATIN SOD10 MG PO (11:45)
[2019-11-05 11:59] VITALS: BP 118/80; Ht 175.3 cm; Wt 103.2 kg
[2019-11-05 12:15] LABS: BASOPHILS 0.6 % (0-2); EOSINOPHILS 3.9 % (0-7); HEMOGLOBIN 16.2 g/dL (13.5-17.5); IMMATURE GRANULOCYTES 0.2 % (0-5); LYMPHOCYTES 31.2 % (15-50); MCH 29.5 pg (26.0-34.0); MCHC 33.1 g/dL (31.0-37.0); MCV 89.1 fL (80.0-100.0); MEAN PLATELET VOLUME 10.7 fL (7.4-10.4); MONOCYTES 9.5 % (2-11); NEUTROPHILS 54.6 % (40-80); PLATELET COUNT 156 10x3/uL (130-400); RDW 12.3 % (11.5-14.5); WBC 4.6 10x3/uL (4.8-10.8)
[2019-11-05 12:28] LABS: ALT (SGPT) 38 U/L (10-68); CALC OSMOLALITY 276 mosm/kg (275-300); CALCIUM 9.3 mg/dL (8.5-10.1); CARBON DIOXIDE 27.4 mmol/L (21.0-32.0); CHLORIDE - SERUM 103 mmol/L (98-107); CHOL - HDL RATIO 2.7 ratio (2.3-4.9); CHOLESTEROL, TOTAL 164 mg/dL (0-200); CREATININE - SERUM 0.8 mg/dL (0.6-1.3); GLUCOSE 103 mg/dL (74-106); HDL CHOLESTEROL 61 mg/dL (32-96); LDL CHOLESTEROL 88 mg/dL (0-100); LDL-HDL RATIO 1.4 ratio (1.5-3.5); POTASSIUM - SERUM 3.9 mmol/L (3.5-5.1); SODIUM 137 mmol/L (136-145); TRIGLYCERIDE 75 mg/dL (30-200); UREA NITROGEN 20 mg/dL (7-18); eGFR NON AFRICAN AMERICAN > 90 mL/min (90-120)
--- NOTE | 2019-11-05 15:10 | NUR ---
PT REC'D TO ROOM 4 VIA STRETCHER FROM ELECTRICIAN CONTROL EQUIPMENT. MONITORS ESTAB. AT BS. SEE HR RECEPTIONIST. ALARMS ON AND C/L IN REACH.
--- NOTE | 2019-11-05 15:25 | NUR ---
R WRIST Z BAND SITE C/D/I. NO S/S BLEEDING OR HEMATOMA. HOB ELEVATED AND SANDWICH TRAY PROVIDED. ASSISTING.
--- NOTE | 2019-11-05 15:36 | NUR ---
DR YOUNG IN TO SEE PT, UPDATED HIM AND HIS , QUESTIONS ANSWERED.
--- NOTE | 2019-11-05 16:10 | NUR ---
5 CC AIR REMOVED FROM Z BAND, NO S/S BLEEDING OR HEMATOMA. VSS. PT DENIES PAIN OR NEEDS.
--- NOTE | 2019-11-05 16:25 | NUR ---
ALL AIR REMOVED FROM Z BAND, NO S/S BLEEDING OR HEMATOMA, HAND WARM, PULSES PALP. WILL CONT CLOSE MONITORING.
--- NOTE | 2019-11-05 16:52 | NUR ---
ALL DISCHARGE INSTRUCTIONS REVIEWED WITH PT AND - UNDERSTANDING VERBALIZED. PIV D/C'D INTACT. SBP 90S, WITHIN BASELINE PARAMETER, MAP 70S. PT DENIES ANY LIGHT-HEADEDNESS OR OTHER SYMPTOMS. PT ALLOWED UP TO GET DRESSED WITH ASSISTING.
--- NOTE | 2019-11-05 16:55 | NUR ---
Z BAND OFF, NO S/S BLEEDING - DSG APPLIED AND ARM BOARD IN PLACE.
--- NOTE | 2019-11-05 17:00 | NUR ---
PT UP TO BR INDEPENDENTLY, THEN D/C'D HOME VIA WC TO PRIVATE VEHICLE, HAS ALL PAPERWORK AND BELONGINGS.
== END 2019-11-05 17:00 | disposition home or self-care (01) ==
LOC: D.CATH 11:21
PROVIDERS: ATTEND Internal Medicine Cardiovascular Disease
DX: I25.119 Atherosclerotic heart disease of native coronary artery with unspecified angina pectoris (principal); R94.39 Abnormal result of other cardiovascular function study; I10 Essential (primary) hypertension; R06.02 Shortness of breath; E78.5 Hyperlipidemia, unspecified